=== PATIENT | female | born 1950 | race Caucasian/White ===

== ENCOUNTER 2019-01-30 12:05 | Emergency (ER) | payer MEDICARE, SELFPAY | END 2019-01-30 16:10 | disposition home or self-care (01) | PROVIDERS: Emergency Provider Emergency Medicine; PCP Family Medicine; Visit Provider Emergency Medicine | DX: C91.10 Chronic lymphocytic leukemia of B-cell type not having achieved remission (principal) | CPT/HCPCS: 36415; 36600; 71046; 80053; 82805; 83605; 85025; 85610; 85730; 87040; 94640; 96361; 96365; 96367; 96375; 99284; J0456; J0696; J2930; J7030 ==

== ENCOUNTER → 2019-02-20 10:02 | Outpatient (CLI) | payer MEDICARE, SELFPAY ==
--- NOTE | ~2019-02-20 | XR_ITS ---
EXAMINATION: XR chest 2V DATE: 02/20/2019 10:22 INDICATION: Pneumonia, unspecified organism. TECHNIQUE: Frontal and lateral views of the chest were obtained. COMPARISON: Chest 2 views 01/30/2019 FINDINGS: There is mild scarring at the lung apices. No pleural effusion or pneumothorax. The heart s ize is normal. IMPRESSION: 1. Mild scarring at the lung apices. Reviewed, dictated and finalized at location B. ERCIAL STRIPPER
== END ==
PROVIDERS: Visit Provider Physician Assistant
DX: J18.9 Pneumonia, unspecified organism (principal); R91.8 Other nonspecific abnormal finding of lung field
CPT/HCPCS: 71046

== ENCOUNTER 2020-01-20 17:48 | Emergency (ER) | payer MEDICARE, SELFPAY ==
[2020-01-20 17:53] VITALS: BP 170/117; PULSE 102; RESP 18; TEMP 36.7; O2SAT 100
--- NOTE | 2020-01-20 17:56 | ED.SKABFB ---
HPI - Skin/Abscess/Foreign Bdy General Chief complaint: Skin/Abscess/Foreign Body Stated complaint: FB - meat stuck in throat Time Seen by Provider: 01/20/20 17:51 History of Present Illness HPI narrative: Patient is a 69-year-old female who presents ER with esophageal foreign body. She was eating a piece of pot roast about 1 hour ago when she felt to get stuck in her upper chest. It is quite uncomfortable. If she drinks water it will build up and then immediately come back out around. No fevers chills or sweats. She reports that over the last 6 months she has developed increasing difficulty with some swallowing especially with fish oil pills which she can no longer swallow because she feels like they get stuck. She has no abdominal pain. Has not found any alleviating factors. Related Data Allergies Allergy/AdvReac Type Severity Reaction Status Date / Time iodine Allergy Mild hives Verified 06/25/19 09:41 No Known Allergies Allergy Unknown Unverified 01/30/19 10:37 Review of Systems Review of Systems: All systems reviewed & are unremarkable except as noted in HPI and below Cardiovascular: Cardiovascular: Reports chest pain (Fullness from foreign body) Respiratory: Respiratory: Denies cough, Denies dyspnea and Denies wheezing Gastrointestinal: Gastrointestinal: Denies diarrhea, Denies nausea and Denies vomiting PMFSH Past Medical History Medical History (Updated 01/20/20 @ 18:33 by Shaheed Cavanaugh MD) CLL (chronic lymphocytic leukemia) Closed displaced fracture of neck of left radius with routine healing Nephrolithiasis Other female genital prolapse Surgical History Surgical History (Updated 02/07/19 @ 09:35 by Mandi Trotter MA) H/O section Family History Family History Mother Family history of malignant neoplasm of brain, Onset Age: 80 Other Family history of arthritis Social History Social History Smoking status: Heavy tobacco smoker Second hand tobacco smoke exposure: Yes Alcohol intake: current Gender identity (if verbalized by the patient): Female Exam Narrative: Exam Narrative: GENERAL: Uncomfortable-appearing, well-nourished, and in no acute distress. HEAD: Normocephalic, atraumatic. CHEST: Clear to auscultation. No respiratory distress. HEART: Regular rate and rhythm. Normal peripheral pulses. ABDOMEN: Soft, nontender, nondistended. EXTREMITIES: Normal range of motion. No edema. SKIN: Warm, dry, no rash. NEURO: Alert and oriented x3. PSYCH: Normal mood and affect. Course Course Emergency Course: Patient expelled her meat impaction. She is not able to tolerate fluids. GI contacted. Discharge home with close follow-up with GI for EGD, will start on PPI. Patient educated to avoid irritants such as alcohol/soda and thicker foods like steak and pork to avoid recurrence. Vital Signs Vital signs: Vital Signs Temperature 98.0 F 01/20/20 17:53 Pulse Rate 102 H 01/20/20 17:53 Respiratory Rate 18 01/20/20 17:53 Blood Pressure 170/117 H 01/20/20 17:53 Pulse Oximetry 100 01/20/20 17:53 Temperature 98.0 F 01/20/20 17:53 Pulse Rate 102 H 01/20/20 17:53 Respiratory Rate 18 01/20/20 17:53 Blood Pressure 170/117 H 01/20/20 17:53 Pulse Oximetry 100 01/20/20 17:53 Discharge Plan Discharge Clinical Impression: Esophageal obstruction due to food impaction Patient Disposition: Home, Self-Care Condition: Stable Instructions: Esophageal Foreign Body (ED) Additional Instructions: Return the ER if cannot breathe, cannot swallow, you have fever of 100.4 ?F, you have additional concerns. Prescriptions: New pantoprazole 40 mg tablet,delayed release (DR/EC) 40 mg PO BID Qty: 28 RF: 0 No Action albuterol sulfate [Ventolin HFA] 90 mcg/actuation HFA aerosol inhaler 1 inhalation INHALATION Q4H PRN (Re
[2020-01-20 18:45] VITALS: BP 118/75; PULSE 72; RESP 16; O2SAT 100
== END 2020-01-20 18:47 | disposition home or self-care (01) ==
PROVIDERS: Emergency Provider Emergency Medicine; PCP Family Medicine
DX: T18.128A Food in esophagus causing other injury, initial encounter (principal); Z87.442 Personal history of urinary calculi; F17.200 Nicotine dependence, unspecified, uncomplicated; Z85.6 Personal history of leukemia
CPT/HCPCS: 99283

== ENCOUNTER 2021-02-03 10:04 | Emergency (ER) | payer MEDICARE, SELFPAY ==
[2021-02-03 10:13] VITALS: BP 160/90; PULSE 105; RESP 16; TEMP 36.6; O2SAT 100
--- NOTE | 2021-02-03 10:26 | ED.URI ---
HPI - URI/Sore Throat General Chief Complaint: Upper Respiratory Infection Stated Complaint: HEAD/CHEST COLD Time Seen by Provider: 02/03/21 10:15 Source: patient and RN notes reviewed Mode of arrival: ambulatory Limitations: no limitations History of Present Illness HPI Narrative: Patient presents today with a 4-day history of rhinorrhea, cough, sore throat, sinus pressure, fatigue, chills. Denies shortness of breath, fever. She has been taking DayQuil, NyQuil, and Robitussin with some relief. Reports that she has been around a grandchild who was sick. MD elicited complaint: cough, sore throat and nasal congestion Related Data Allergies Allergy/AdvReac Type Severity Reaction Status Date / Time iodine Allergy Mild hives Verified 01/30/20 09:53 No Known Allergies Allergy Unknown Unverified 01/30/19 10:37 Review of Systems Review of Systems: CONSTITUTIONAL: Denies body aches, fever, or sweats.+ Chills, fatigue EYES: Denies visual changes, redness, or discharge. ENT: Denies otalgia.+ Congestion, sore throat, sinus pressure CARDIOVASCULAR: Denies chest pain, palpitations, or edema. RESPIRATORY: Denies dyspnea.+ Cough GASTROINTESTINAL: Denies abdominal pain, nausea, vomiting, or diarrhea. GENITOURINARY: Denies dysuria or hematuria. SKIN: Denies rash, itching, or wounds. MUSCULOSKELETAL: Denies back pain, joint pain, or myalgia. NEUROLOGIC: Denies headache, numbness, tingling, or weakness. PSYCH: Denies depression or anxiety. [facility] Past Medical History Medical History CLL (chronic lymphocytic leukemia) Closed displaced fracture of neck of left radius with routine healing Colon cancer screening Food impaction of esophagus GERD (gastroesophageal reflux disease) Nephrolithiasis Other female genital prolapse Surgical History Surgical History H/O section Family History Family History Mother Family history of malignant neoplasm of brain, Onset Age: 80 Other Family history of arthritis Social History Social History Smoking status: Current every day smoker Second hand tobacco smoke exposure: Yes Alcohol intake: current Gender identity (if verbalized by the patient): Female Comments At time of signature, I have reviewed and agree with nursing past medical, surgical, social and family history unless otherwise noted. Please see nursing chart for further information. There is no relevant family history pertinent to the presenting complaint Exam Narrative: GENERAL: Well-appearing, well-nourished, and in no acute distress. HEAD: Normocephalic, atraumatic. EYES: EOMI. No redness or drainage. Conjunctivae normal. ENT: Mucous membranes pink and moist. Nares congested. No rhinorrhea. TMs normal bilaterally. Throat normal. Uvula midline. NECK: Normal AROM. Supple. No lymphadenopathy. CHEST: No respiratory distress. Clear to auscultation. HEART: Regular rate and rhythm. No murmur appreciated. Normal peripheral pulses. EXTREMITIES: Normal range of motion. No edema. SKIN: Warm, dry, no rash. Capillary refill normal. Normal skin turgor. NEURO: No focal deficits. Alert and oriented x3. Gait steady. PSYCH: Normal affect. No signs of depression or anxiety. Course Vital Signs Vital signs: Vital Signs Temperature 97.8 F 02/03/21 10:13 Pulse Rate 105 H 02/03/21 10:13 Respiratory Rate 16 02/03/21 10:13 Blood Pressure 160/90 H 02/03/21 10:13 Pulse Oximetry 100 02/03/21 10:13 Temperature 97.8 F 02/03/21 10:13 Pulse Rate 105 H 02/03/21 10:13 Respiratory Rate 16 02/03/21 10:13 Blood Pressure 160/90 H 02/03/21 10:13 Pulse Oximetry 100 02/03/21 10:13 Reviewed. Pt has been instructed to follow up with her PCP regarding her elevated blo
== END 2021-02-03 10:33 | disposition home or self-care (01) ==
PROVIDERS: Emergency Provider Nurse Practitioner; PCP Family Medicine
DX: J06.9 Acute upper respiratory infection, unspecified (principal); F17.200 Nicotine dependence, unspecified, uncomplicated; K21.9 Gastro-esophageal reflux disease without esophagitis; C91.10 Chronic lymphocytic leukemia of B-cell type not having achieved remission
CPT/HCPCS: 99211; G0463

== ENCOUNTER 2021-02-18 10:39 | Emergency (ER) | payer MEDICARE, SELFPAY ==
[2021-02-18 10:50] VITALS: BP 151/80; PULSE 86; RESP 20; TEMP 37.2; O2SAT 100
--- NOTE | 2021-02-18 11:22 | ED.URI ---
HPI - URI/Sore Throat General Chief Complaint: Upper Respiratory Infection Stated Complaint: cough/sinus issues/sore throat Source: patient Mode of arrival: ambulatory Limitations: no limitations History of Present Illness HPI Narrative: Patient is a 70-year-old female who presents complaining of sinus pressure, congestion, cough and ear pressure x3 weeks. Patient was seen on 02/03 previously for same. Patient reports symptoms continue. She reports using [id number] medications with limited relief. She denies nausea, vomiting or diarrhea. She reports Covid vaccinated x3 with no exposure to Covid. Related Data Allergies Allergy/AdvReac Type Severity Reaction Status Date / Time iodine Allergy Mild hives Verified 02/18/21 10:55 Review of Systems Review of Systems: CONSTITUTIONAL: Denies fever, chills, or sweats. EYES: Denies visual changes, redness, or discharge. ENT: Reports congestion, sore throat, facial pain and otalgia. CARDIOVASCULAR: Denies chest pain, palpitations, or edema. RESPIRATORY: Denies cough or dyspnea. GASTROINTESTINAL: Denies abdominal pain, nausea, vomiting, or diarrhea. GENITOURINARY: Denies dysuria or hematuria. SKIN: Denies rash or itching. MUSCULOSKELETAL: Denies back pain, joint pain, or myalgia. NEUROLOGIC: Denies headache, numbness, dizziness, or weakness. PSYCHIATRIC: Denies anxiety or depression. [facility] Past Medical History Medical History CLL (chronic lymphocytic leukemia) Closed displaced fracture of neck of left radius with routine healing Colon cancer screening Food impaction of esophagus GERD (gastroesophageal reflux disease) Nephrolithiasis Other female genital prolapse Surgical History Surgical History H/O section Family History Family History Mother Family history of malignant neoplasm of brain, Onset Age: 80 Other Family history of arthritis Social History Social History Smoking status: Current every day smoker Second hand tobacco smoke exposure: Yes Alcohol intake: current Gender identity (if verbalized by the patient): Female Comments At the time of signature, I have reviewed and agree with nursing past medical, surgical, social, and family history unless otherwise noted. Please see nursing chart for further information. There is no relevant family history pertinent to the presenting complaint. Exam Narrative: GENERAL: Well-appearing, well-nourished, and in no acute distress. HEAD: Normocephalic, atraumatic. EYES: EOMI. No redness or drainage. Conjunctiva are normal. ENT: Mucous membranes pink and moist. Nares clear. No rhinorrhea. TMs normal bilaterally. Throat mild erythema. Uvula midline. Maxillary sinus tenderness with palpation NECK: AROM. Supple. No lymphadenopathy. CHEST: No respiratory distress. HEART: Regular rate and rhythm. EXTREMITIES: Normal range of motion. SKIN: Warm, dry, no rash. NEURO: No focal deficits. Alert and oriented x3. Gait steady. PSYCH: Normal affect. No signs of depression or anxiety. Course Vital Signs Vital signs: Vital Signs Temperature 37.2 C 02/18/21 10:50 Pulse Rate 86 02/18/21 10:50 Respiratory Rate 20 02/18/21 10:50 Blood Pressure 151/80 H 02/18/21 10:50 Pulse Oximetry 100 02/18/21 10:50 Temperature 37.2 C 02/18/21 10:50 Pulse Rate 86 02/18/21 10:50 Respiratory Rate 20 02/18/21 10:50 Blood Pressure 151/80 H 02/18/21 10:50 Pulse Oximetry 100 02/18/21 10:50 Reviewed-patient is informed that they may have pre-hypertension or hypertension based on a blood pressure reading. I recommend the patient call the primary care provider listed on their discharge instructions or a physician of their choice this week to arrange follow-up for further evalua
== END 2021-02-18 11:42 | disposition home or self-care (01) ==
PROVIDERS: Emergency Provider Nurse Practitioner; PCP Family Medicine
DX: J32.9 Chronic sinusitis, unspecified (principal); F17.200 Nicotine dependence, unspecified, uncomplicated; K21.9 Gastro-esophageal reflux disease without esophagitis; C91.10 Chronic lymphocytic leukemia of B-cell type not having achieved remission
CPT/HCPCS: 99213; G0463

== ENCOUNTER 2021-03-24 09:29 | Outpatient (CLI) | payer MEDICARE, SELFPAY ==
--- NOTE | ~2021-03-24 | CT_ITS ---
EXAMINATION: CT abdomen pelvis w con DATE: 03/24/2021 09:59 INDICATION: Left lower quadrant pain for months. TECHNIQUE: Computed tomography (CT) of the abdomen and pelvis was performed with 100 cc Omnipaque 350 intravenous contrast. The dose-length product was 243.12 mGy-cm. Automated exposure control and iter ative reconstruction technique were employed. COMPARISON: CT dated 06/24/2003 FINDINGS: There is atelectasis in the lower lungs. Heart size is normal. No significant pleural or pe ricardial effusion. There is splenomegaly. The liver, pancreas, adrenal glands and left kidney are within normal limits. There is a right renal cyst measuring 4.5 cm. Gallbladder is present. The appendix is normal.. Nonobs tructive bowel gas pattern. No free air or free fluid. No significant vascular abnormality. No lympha denopathy. There is dextroscoliosis of the lumbar spine with lateral listhesis at L3-4. Small fat-con taining umbilical hernia. IMPRESSION: 1. Splenomegaly. 2: No acute abdominal abnormality. Reviewed, dictated and finalized at location A. STIAN SCIENCE READER
== END 2021-03-24 09:30 | disposition home or self-care (01) ==
LOC: ANHIMG 09:33
PROVIDERS: PCP Family Medicine; Visit Provider Physician Assistant
DX: R10.9 Unspecified abdominal pain (principal); K42.9 Umbilical hernia without obstruction or gangrene; R16.1 Splenomegaly, not elsewhere classified; N28.1 Cyst of kidney, acquired; M41.9 Scoliosis, unspecified
CPT/HCPCS: 74177; Q9967

== ENCOUNTER 2021-03-27 10:32 | Emergency (ER) | payer MEDICARE, SELFPAY ==
--- NOTE | ~2021-03-27 | XR_ITS ---
XR ribs LT 2V DATE: 03/27/2021 11:38 INDICATION: Fall last night. Lower left lateral rib pain in the right and TECHNIQUE: 3 views COMPARISON: None FINDINGS: No displaced rib fracture or bone destruction is detected. Prominent rotatory dextroscoliosis and degenerative disease of the lumbar spine is incidentally noted . Left lung is clear. No left pleural effusion or pneumothorax. IMPRESSION: No rib fracture is detected Reviewed, dictated and finalized at location A. NESS DATA ANALYST IMPRESSION: No rib fracture is detected
[2021-03-27 10:39] VITALS: BP 162/96; PULSE 92; RESP 16; TEMP 36.6; O2SAT 98
--- NOTE | 2021-03-27 12:45 | ED.FALL ---
HPI - Fall General Chief Complaint: Fall Stated Complaint: fall/back pain Time Seen by Provider: 03/27/21 12:16 Source: patient Mode of arrival: ambulatory Limitations: no limitations History of Present Illness HPI Narrative: Patient is a 70-year-old female complaining of left rib pain, 6 out of 10, dull, worse with palpation movement after her feet got caught up in her pants fell and hit her left ribs on a shelf. Patient denies any head, neck, back, chest, abdomen or any extremity pain/injury. Patient able to get up and ambulate after the fall. Related Data Allergies Allergy/AdvReac Type Severity Reaction Status Date / Time iodine Allergy Mild hives Verified 03/27/21 11:28 Review of Systems Review of Systems: All systems reviewed & are unremarkable except as noted in HPI and below Constitutional: Constitutional: Denies body ache(s), Denies chills, Denies excessive sweating, Denies fatigue, Denies fever(s), Denies headache(s), Denies lethargy, Denies malaise, Denies weakness and Denies weight loss Eyes: Eyes: Denies blurry vision, Denies change in vision and Denies loss of vision ENT: Denies dizziness, Denies ear discharge, Denies headache(s), Denies lip swelling, Denies epistaxis, Denies nasal congestion, Denies neck pain, Denies throat swelling and Denies tongue swelling Cardiovascular: Cardiovascular: Denies chest pain, Denies chest pain at rest, Denies chest pain with activity, Denies diaphoresis, Denies rapid heart rate, Denies edema, Denies irregular heart rhythm, Denies lightheadedness, Denies palpitations, Denies dyspnea and Denies dyspnea on exertion Respiratory: Respiratory: Denies chest congestion, Denies cough, Denies hemoptysis, Denies dyspnea and Denies dyspnea on exertion Gastrointestinal: Gastrointestinal: Denies abdominal pain, Denies melena, Denies hematochezia, Denies diarrhea, Denies nausea, Denies vomiting and Denies hematemesis Musculoskeletal: Musculoskeletal: Denies abnormal gait, Denies deformity, Denies joint swelling, Denies limited range of motion, Denies neck pain and Denies numbness Neurologic: Denies Abnormal speech present, Denies abnormal gait, Denies confusion, Denies dizziness, Denies headache(s), Denies focal weakness, Denies loss of vision, Denies numbness, Denies Other visual disturbances, Denies Sensory deficit (Neuro) and Denies weakness Psychiatric: Psychiatric: Denies confusion, Denies depression, Denies auditory hallucinations, Denies homicidal ideation and Denies suicidal ideation Endocrine: Endocrine: Denies cold intolerance, Denies excessive sweating, Denies fatigue, Denies heat intolerance and Denies palpitations Hematologic/Lymphatic: Hematologic/Lymphatic: Denies easy bleeding and Denies easy bruising Allergic/Immunologic: Allergic/Immunologic: Denies lip swelling, Denies throat swelling and Denies tongue swelling PMFSH Past Medical History Medical History CLL (chronic lymphocytic leukemia) Closed displaced fracture of neck of left radius with routine healing Colon cancer screening Food impaction of esophagus GERD (gastroesophageal reflux disease) Nephrolithiasis Other female genital prolapse Surgical History Surgical History H/O section Family History Family History Mother Family history of malignant neoplasm of brain, Onset Age: 80 Other Family history of arthritis Social History Social History Second hand tobacco smoke exposure: Yes Alcohol intake: current Gender identity (if verbalized by the patient): Female Exam Const: General: cooperative, healthy appearing, comfortable, no acute distress, well developed, alert and awake; No confusion Orientation/consciousness: oriented to person, oriented to place, oriented to time, patie
== END 2021-03-27 13:42 | disposition home or self-care (01) ==
PROVIDERS: Emergency Provider Emergency Medicine; PCP Family Medicine
DX: S20.212A Contusion of left front wall of thorax, initial encounter (principal); K21.9 Gastro-esophageal reflux disease without esophagitis; Z87.442 Personal history of urinary calculi; Z85.6 Personal history of leukemia; W01.198A Fall on same level from slipping, tripping and stumbling with subsequent striking against other object, initial encounter
CPT/HCPCS: 71100; 99283

== ENCOUNTER 2021-03-29 13:52 | Emergency (ER) | payer MEDICARE, SELFPAY ==
--- NOTE | ~2021-03-29 | CT_ITS ---
EXAMINATION: CT chest abdomen pelvis wo con DATE: 03/29/2021 17:41 INDICATION: Right lower quadrant abdominal pain. Abdominal pain following recent left chest wall cont usion. Intermittent nausea. TECHNIQUE: Computed tomography (CT) of the chest, abdomen, and pelvis was performed without intraveno us contrast. Automated exposure control and iterative reconstruction technique were employed. Exam do se: 320.36 mGy-cm total exam DLP. COMPARISON: 03/24/2021 CT abdomen pelvis with IV contrast material FINDINGS: CHEST CT: There is bilateral apical pulmonary scarring, right greater than left. There is discoid atelectasis o r more likely scarring of the middle lobe and mild dependent atelectasis in both lower lobes. No pulmonary infiltrate or consolidation or suspicious pulmonary mass lesion is evident. Normal heart size. No hilar or mediastinal mass lesion or lymphadenopathy. No thoracic aortic aneurys m. Small sliding hiatal hernia. ABDOMEN/PELVIS CT: Splenomegaly is noted. No hepatic, splenic, pancreatic, and adrenal space-occupying mass lesion. No b ile duct or pancreatic duct dilatation. 4 cm lower pole right renal cyst. No renal mass lesion or urinary tract calculus is noted otherwise. No hydroureteronephrosis. The urinary bladder is unremarkable. There is abdominal aortic calcification and tortuosity but no aneurysm. No intraperitoneal or retrope ritoneal or pelvic mass lesion or adenopathy or ascites is detected. Small calcified uterine fibroid. The urinary bladder is unremarkable. No bowel obstruction or bowel wall thickening, pneumatosis or intraperitoneal free air is detected. 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 IMPRESSION: Splenomegaly Small sliding hiatal hernia 4 cm lower pole right renal cyst Reviewed, dictated and finalized at Location A. Reviewed, dictated and finalized at location A. AIN FISHING VESSEL
[2021-03-29 14:15] VITALS: BP 166/102; PULSE 103; RESP 22; TEMP 37.2; O2SAT 97
[2021-03-29 16:59] VITALS: BP 147/102; PULSE 99; RESP 18; O2SAT 100
[2021-03-29 17:08] LABS: Hematocrit 42.6 % (37.0-47.0); Hemoglobin 13.7 g/dL (12.0-15.0); Mean Corpuscular HGB Conc 32.2 g/dl (32-36); Mean Platelet Volume 9.4 fl (7.4-10.4); Platelet Count Result 182 k/mm3 (150-375); Red Blood Count 3.91 M/mm3 (4.2-5.4); Red Cell Distribution Width 13.5 % (11.5-14.5)
[2021-03-29 17:16] LABS: Add Urine Microscopic? YES; Appearance Urine Clear (Clear); Bilirubin Urine Negative (Negative); Blood Urine 2+ (Negative); Color Urine Yellow (Yellow); Glucose Urine UA Negative (Negative); Ketones Urine Negative (Negative); Leukocyte Esterase Ur Trace LEU/UL (Negative); Mucus Urine Rare /lpf; Nitrate Urine Negative (Negative); Protein Urine Negative (Negative); RBC Urine 21-50 /hpf (0-2); Specific Grav Ur 1.015 (1.001-1.035); Squamous Epithelial Cell Urine Moderate /hpf (Few); Urobilinogen Urine Negative mg/dL (<2.0)
--- NOTE | 2021-03-29 17:20 | ED.GENADULT ---
HPI - General Adult General Chief complaint: Abdominal Pain Stated complaint: fall Time Seen by Provider: 03/29/21 16:54 Source: patient Mode of arrival: ambulatory Limitations: no limitations History of Present Illness HPI narrative: Patient presents for evaluation of right lower quadrant pain since 0230 this morning. Pain has been constant with interval worsening. She initially thought this was gas pain however she states that she has never had this pain in the past. She currently rates her pain as 9 out of 10 in severity. She has experienced nausea without vomiting. No fever, chills, urinary symptoms, change in bowel pattern. Last bowel movement was yesterday, solid in consistency, without the presence of blood or mucus in the stool. Past medical history includes leukemia but she states she has been stable since 2005 and has not required treatment. Past surgical history positive for c section x 2. She smokes 1/4 ppd. She drinks one glass of wine daily. She was recently experiencing left sided abdominal pain and had a CT abdomen pelvis performed on 03/24/2021 that showed splenomegaly but otherwise normal. Documentation also indicates that it was recommended she have a pelvic ultrasound. She states she had that performed at it was normal. She was seen here on 03/27/21 after a fall at home when she hit the left side of her ribs against a shelf. She had x ray performed of her ribs that was negative for fracture. She states that pain is improving. She denies any chest pain, SOB or cough. Related Data Allergies Allergy/AdvReac Type Severity Reaction Status Date / Time iodine Allergy Mild hives Verified 03/27/21 11:28 Review of Systems Review of Systems: CONSTITUTIONAL: Denies fever, chills, or sweats. EYES: Denies visual changes, redness, or discharge. ENT: Denies rhinorrhea, congestion, sore throat, or otalgia. CARDIOVASCULAR: Denies chest pain, palpitations, or edema. RESPIRATORY: Denies cough or dyspnea. GASTROINTESTINAL: Reports right lower quadrant pain and nausea without vomiting. Denies diarrhea or constipation. GENITOURINARY: Denies dysuria or hematuria. SKIN: Denies rash or itching. MUSCULOSKELETAL: Denies back pain, joint pain, or myalgia. NEUROLOGIC: Denies headache, numbness, dizziness, or weakness. PSYCHIATRIC: Denies anxiety or depression. [facility] Past Medical History Medical History CLL (chronic lymphocytic leukemia) Closed displaced fracture of neck of left radius with routine healing Colon cancer screening Food impaction of esophagus GERD (gastroesophageal reflux disease) Nephrolithiasis Other female genital prolapse Surgical History Surgical History H/O section Family History Family History Mother Family history of malignant neoplasm of brain, Onset Age: 80 Other Family history of arthritis Social History Social History Second hand tobacco smoke exposure: Yes Alcohol intake: current Gender identity (if verbalized by the patient): Female Exam Narrative: GENERAL: Well-appearing, well-nourished, and in no acute distress. HEAD: Normocephalic, atraumatic. EYES: PERRLA and EOMI. ENT: Nares clear, no rhinorrhea or epistaxis. Mucous membranes moist. Oropharynx without tonsillar hypertrophy exudate or other lesions. Bilateral TMs pearly guerrero nonbulging NECK: Supple. No adenopathy or masses. No carotid bruits or JVD CHEST: Clear to auscultation. No respiratory distress. No wheezes rales or rhonchi HEART: Regular rate and rhythm. No murmur heard. Normal peripheral pulses. ABDOMEN: Soft, nondistended, normal active bowel sounds. No abdominal tenderness EXTREMITIES: Normal range of motion. No edema. SKIN: Ecchymosis to left lateral lower ribs. Warm,
[2021-03-29] MEDS: ONDANSETRON INJ 4 MG/2 ML VIAL IV PUSH (17:24)
[2021-03-29] MEDS: MORPHINE SULFATE (*CRX) 2 MG/ML INJ IV PUSH (17:25)
[2021-03-29 17:39] LABS: Partial Thromboplastin Time 23.1 SECONDS (22.3-36.8); Prothrombin Time 13.1 Seconds (11.1-14.7)
[2021-03-29 17:40] LABS: Alanine Aminotransferase 16 U/L (4-35); Albumin Level 4.2 g/dL (3.5-5.1); Alkaline Phosphatase 93 U/L (38-126); Anion Gap 5 mmol/L (8-16); Aspartate Amino Transferase 41 U/L (14-36); Bilirubin,Total 0.6 mg/dL (0.2-1.3); Blood Urea Nitrogen 14 mg/dL (7-17); Carbon Dioxide 29 mmol/L (22-30); Chloride 104 mmol/L (98-107); Estimated CRCL calculation 50 ml/min; Estimated Glomerular Filt Rate > 60; Glucose 123 mg/dL (65-110); Lipase 32 U/L (23-300); Potassium 4.9 mmol/L (3.4-5.0); Sodium 138 mmol/L (137-145)
[2021-03-29 17:41] LABS: White Blood Count 96.5 K/mm3 (4.5-10.0)
[2021-03-29 17:41] LABS: Creatine Kinase 47 U/L (30-135)
[2021-03-29 17:58] LABS: Lactic Acid Reflex 0.9 mmol/L (0.7-2.1)
[2021-03-29] MEDS: cloNIDine HCL 0.1 MG TABLET PO (18:01)
[2021-03-29 18:02] VITALS: BP 161/95; PULSE 88; RESP 18; O2SAT 97
[2021-03-29 18:10] LABS: Troponin I < 0.012 ng/mL (0.000-0.034)
[2021-03-29 18:44] LABS: Lymphocytes Absolute Manual 87.81 K/mm3 (1.1-4.5); Monocytes Absolute Manual 0.96 K/mm3 (0.1-0.90); Monocytes Percent Manual 1 % (3-9); Neutrophils Percent Manual 8 % (46-73); Total Cells Counted 100
[2021-03-29 18:45] LABS: Platelet Estimate Adequate (Adequate)
[2021-03-29 18:57] LABS: Smudge Cells MODERATE
[2021-03-29 19:28] VITALS: BP 160/85; PULSE 85; RESP 16; O2SAT 100
== END 2021-03-29 19:29 | disposition home or self-care (01) ==
PROVIDERS: Emergency Medicine; Emergency Provider Nurse Practitioner; PCP Family Medicine
DX: N30.01 Acute cystitis with hematuria (principal); R10.31 Right lower quadrant pain; D72.829 Elevated white blood cell count, unspecified; Z85.6 Personal history of leukemia; K21.9 Gastro-esophageal reflux disease without esophagitis; Z87.442 Personal history of urinary calculi; F17.210 Nicotine dependence, cigarettes, uncomplicated; K44.9 Diaphragmatic hernia without obstruction or gangrene; N28.1 Cyst of kidney, acquired; R16.1 Splenomegaly, not elsewhere classified
CPT/HCPCS: 36415; 71250; 74176; 80053; 81001; 82550; 83605; 83690; 84484; 85025; 85610; 85730; 87086; 96374; 96375; 99284; A9270; J2270; J2405